=== PATIENT | male | born 1945 | race Caucasian/White ===

== ENCOUNTER 2017-04-11 13:01 | Emergency (ER) | payer OTHER ==
[2017-04-11 13:23] VITALS: BMI 29.0
[2017-04-11 13:28] LABS: BASOPHILS % (AUTO) 0.7 % (0.2-1.0); EOSINOPHILS # (AUTO) 0.1 x10^3/uL (0.0-0.2); HEMOGLOBIN 15.2 g/dL (13.5-18.0); LYMPHOCYTES # (AUTO) 2.2 X10^3/uL (1.3-2.9); LYMPHOCYTES % (AUTO) 37.5 % (21.0-51.0); MEAN CORPUSCULAR HEMOGLOBIN 30.7 pg (27.0-34.0); MEAN CORPUSCULAR HGB CONC 34.6 g/dL (33.0-35.0); MEAN CORPUSCULAR VOLUME 88.6 fL (80.0-100.0); MONOCYTES # (AUTO) 0.8 x10^3/uL (0.3-0.8); MONOCYTES % (AUTO) 14.4 % (0.0-13.0); NEUTROPHILS # (AUTO) 2.7 x10^3/uL (2.2-4.8); NEUTROPHILS % (AUTO) 45.4 % (42.0-75.0); PLATELET COUNT 142 X10^3/uL (150.0-450.0); RED BLOOD COUNT 4.96 X10^6/uL (4.7-6.0); RED CELL DISTRIBUTION WIDTH 14.8 % (11.6-16.5); WHITE BLOOD COUNT 5.8 X10^3/uL (3.6-10.0)
[2017-04-11 13:41] LABS: BLOOD UREA NITROGEN 12 mg/dL (7-18); CALCIUM 8.6 mg/dL (8.5-10.1); CHLORIDE 108 mmol/L (98-107); CREATININE 1.07 mg/dL (0.70-1.30); SODIUM 142 mmol/L (136-145); TROPONIN I < 0.02 ng/mL (0-1.5); eGFR BLACK RACES > 60 (>60); eGFR NON BLACK RACES > 60 (>60)
[2017-04-11 13:45] LABS: ALANINE AMINOTRANSFERASE 22 Units/L (12-78); ALBUMIN 3.3 g/dL (3.4-5.0); ALKALINE PHOSPHATASE 109 Units/L (46-116); ASPARTATE AMINO TRANSFERASE 20 Units/L (15-37); CKMB % 1.1 % (<4); COR CA(FOR HYPOALB) 9.2 mg/dL (8.5-10.1); CREATINE KINASE 92 Units/L (39-308); CREATINE KINASE MB < 1.0 ng/mL (0-4.0); MAGNESIUM 1.8 mg/dL (1.7-2.9); TOTAL PROTEIN 7.1 g/dL (6.4-8.2)
[2017-04-11 14:09] LABS: BILIRUBIN,URINE NEGATIVE (NEGATIVE); BLOOD/HEMOGLOBIN,URINE NEGATIVE (NEGATIVE); GLUCOSE, URINE NEGATIVE (NEGATIVE); KETONES,URINE NEGATIVE (NEGATIVE); LEUKOCYTE ESTERASE ,URINE NEGATIVE (NEGATIVE); NITRITES,URINE NEGATIVE (NEGATIVE); PH,URINE 6.5 (5.0 - 8.0); PROTEIN,URINE NEGATIVE (NEGATIVE); UROBILINOGEN,URINE NORMAL (NORMAL)
[2017-04-11 14:25] LABS: APPEARANCE,URINE CLEAR (CLEAR); BACTERIA,URINE NEGATIVE /HPF (NEGATIVE); COLOR,URINE YELLOW (YELLOW); RBC,URINE 0 /HPF (NEGATIVE); SQUAMOUS EPITHELIAL CELL,UR NEGATIVE /HPF (NEGATIVE)
--- NOTE | 2017-04-11 14:46 | DR.GENAD ---
HPI - PCP Primary Care Physician: Eulogio - HPI Comment HPI Comment: PATIENT FEE LIGHT HEADED AND WEAK. NOT RESOLVING. BETSY ELEVATED IN ED. - Complaint/Symptoms Chief Complaint Doctors Comments: DIZZINESS, CHEST PAIN ANF HEART FLUTTERING FOR FEW HOURS. Chief Complaint:: "Today my heart has just been feeling like it is fluttering. I have had A-fib in the past and I'm thinking that might be what it is. When I stood up earlier I was really dizzy as well." - Nurses notes reviewed Nurses Notes Review: Yes - Source History Provided: Patient - Mode of Arrival Mode of Arrival: Ambulatory - Timing Onset of Chief Complaint: 04/11/17 Came on: Suddenly - Duration Duration: Constant Duration: Days - Severity Severity: Moderate PMH - PMH Past Medical History: Yes Past Medical History: Hypertension Past Medical History Comment: Afib Past Surgical History: Yes Surgical History: Ortho Surgery, Other Past Surgical History Comment: Ankle pin - Family History History of Family Medical Conditions: Yes Family Medical History: Diabetes Mellitus, Cancer, [place], Sudden Cardiac , Hypertension - Social History Does patient currently use any type of tobacco product: No Have you used tobacco products in the last 12 months: No Type of Tobacco Use: None Does any household member use tobacco: No Alcohol Use: None Do you use any recreational Drugs:: No Lives With: Family Lives Where: Home - infectious screening In the last 2 months have you had wt loss of >10#?: NO Have you had fever, night sweats or hemotysis?: No Have you traveled outside the country in the last 6 months?: No Isolation: Standard ROS - Review of Systems Constitutional: Weakness, Fatigue Eyes: No Symptoms Reported ENTM: Nose Congestion, Throat Pain. negative: Ear Pain, Nose Discharge Respiratoy: Non-Productive Cough Cardiovascular: Chest Pain Gastrointestinal/Abdominal: Nausea Genitourinary: No Symptoms Reported Neurological: Headache, Weakness, Dizziness Musculoskeletal: No Symptoms Reported Integumentary: No Symptoms Reported Hematologic/Lymphatic: No Symptoms Reported Endocrine: No Symptoms Reported Psychiatric: No Symptoms Reported All Other Systems: Reviewed and Negative PE - Vital Signs Vitals: Pulse Rate [Left Brachial] 69 Pulse Rate 67 Respiratory Rate 16 Blood Pressure [Right Arm] 112/84 Blood Pressure [Left Arm] 177/84 Blood Pressure 190/98 O2 Sat by Pulse Oximetry 99 - General Limitations: No Limitations General Appearance: Alert - Head Head Exam: Normal Inspection - Eyes Eye exam: Normal Appearance - ENT ENT Exam: Normal External Ear Exam External Ear Exam: Normal External Inspection TM/Canal Exam: Bilateral Normal Nose Exam: Normal Nose Exam Mouth Exam: Normal Inspection Throat Exam: Normal Inspection - Neck Neck Exam: Trachea Midline - Chest Chest Inspection: Symmetric Chest Wall Rise - Respiratory Respiratory Exam: Normal Lung Sounds Bilat Respiratory Exam: Bilateral Clear to Auscultation - Cardiovascular Cardiovascular Exam: Regular Rate, Normal Rhythm, Normal Heart Sounds - Abdominal Exam Abdominal Exam: Normal Bowel Sounds, Soft. negative: Tenderness - Extremities Extremities Exam: Normal Inspection - Back Back Exam: Normal Inspection - Neurologic Neurological Exam: Alert, Oriented X3 - Psychiatric Psychiatric Exam: Normal Affect, Normal Mood - Skin Skin Exam: Normal Color MDM - Additional Information Additional Information Obtained From: Family - Differential Diagnosis Differential Diagnosis: DIZZINESS, CVA, CHEST PAIN, SINUSITIS, LABYRINTHITIS, HTN Course - Treatment Treatment: SEE ORDERS - Education/Counseling Education/Counseling: Patient, Family, Education Educated On: Treatment, Diagnosis, Needs for Follow Up ROR - Labs Reviewed Laboratory Results Reviewed?: Yes Result Diagrams: 04/11/17 13:15 04/11/17 13:15 Laboratory: WBC 5.8 X10^3/uL (3.6-10.0) 04/11/17 13:15 RBC 4.96 X10^6/uL (4.7-6.0) 04/11/17 13:15 Hgb 15.2 g/dL (13.5-18.0) 04/11/17 13:15 Hct 44.0 % (42.0-54.0) 04/11/17 13:15 MCV 88.6 fL (80.0-100.0) 04/11/17 13:15 MCH 30.7 pg (27.0-34.0) 04/11/17 13:15 MCHC 34.6 g/dL (33.0-35.0) 04/11/17 13:15 RDW 14.8 % (11.6-16.5) 04/11/17 13:15 Plt Count 142 X10^3/uL (150.0-450.0) L 04/11/17 13:15 MPV 8.0 fL (7.4-11.0) 04/11/17 13:15 Neut % 45.4 % (42.0-75.0) 04/11/17 13:15 Lymph % 37.5 % (21.0-51.0) 04/11/17 13:15 [place] % 14.4 % (0.0-13.0) H 04/11/17 13:15 Eos % 2.0 % (0.9-2.9) 04/11/17 13:15 Baso % 0.7 % (0.2-1.0) 04/11/17 13:15 Neut # 2.7 x10^3/uL (2.2-4.8) 04/11/17 13:15 Lymph # 2.2 X10^3/uL (1.3-2.9) 04/11/17 13:15 [place] # 0.8 x10^3/uL (0.3-0.8) 04/11/17 13:15 Eos # 0.1 x10^3/uL (0.0-0.2) 04/11/17 13:15 Baso # 0.0 X10^3/uL (0.0-0.1) 04/11/17 13:15 Absolute Nucleated RBC 0.1 /100WBC 04/11/17 13:15 INR Target Range - 04/11/17 13:15 INR 1.15 (0.8-1.3) 04/11/17 13:15 PTT 26.5 SECONDS (22.9-36.5) 04/11/17 13:15 PTT Comment - 04/11/17 13:15 Sodium 142 mmol/L (136-145) 04/11/17 13:15 Corrected Sodium TNP 04/11/17 13:15 Potassium 4.0 mmol/L (3.5-5.1) 04/11/17 13:15 Chloride 108 mmol/L (98-107) H 04/11/17 13:15 Carbon Dioxide 23.0 mmol/L (21-32) 04/11/17 13:15 BUN 12 mg/dL (7-18) 04/11/17 13:15 Creatinine 1.07 mg/dL (0.70-1.30) 04/11/17 13:15 Est GFR (MDRD) Af Amer > 60 (>60) 04/11/17 13:15 Est GFR (MDRD) Non-Af > 60 (>60) 04/11/17 13:15 Glucose 101 mg/dL (65-99) H 04/11/17 13:15 Calcium 8.6 mg/dL (8.5-10.1) 04/11/17 13:15 Corrected Calcium 9.2 mg/dL (8.5-10.1) 04/11/17 13:15 Magnesium 1.8 mg/dL (1.7-2.9) 04/11/17 13:15 Total Bilirubin 0.40 mg/dL (0.2-1.0) 04/11/17 13:15 AST 20 Units/L (15-37) 04/11/17 13:15 ALT 22 Units/L (12-78) 04/11/17 13:15 Alkaline Phosphatase 109 Units/L (46-116) 04/11/17 13:15 Creatine Kinase 92 Units/L (39-308) 04/11/17 13:15 CK-MB (CK-2) < 1.0 ng/mL (0-4.0) 04/11/17 13:15 CK/CKMB % Calc 1.1 % (<4) 04/11/17 13:15 Troponin I < 0.02 ng/mL (0-1.5) 04/11/17 13:15 Total Protein 7.1 g/dL (6.4-8.2) 04/11/17 13:15 Albumin 3.3 g/dL (3.4-5.0) L 04/11/17 13:15 Globulin 3.8 g/dL (2.5-4.5) 04/11/17 13:15 Albumin/Globulin Ratio 0.9 Ratio (1.1-2.1) L 04/11/17 13:15 Specimen Type Clean catch urine 04/11/17 13:58 Urine Color Yellow (YELLOW) 04/11/17 13:58 Urine Appearance Clear (CLEAR) 04/11/17 13:58 Urine pH 6.5 (5.0 - 8.0) 04/11/17 13:58 Ur Specific [place] 1.005 (1.000-1.030) 04/11/17 13:58 Urine Protein Negative (NEGATIVE) 04/11/17 13:58 Urine Glucose (UA) Negative (NEGATIVE) 04/11/17 13:58 Urine Ketones Negative (NEGATIVE) 04/11/17 13:58 Urine Occult Blood Negative (NEGATIVE) 04/11/17 13:58 Urine Nitrite Negative (NEGATIVE) 04/11/17 13:58 Urine Bilirubin Negative (NEGATIVE) 04/11/17 13:58 Urine Urobilinogen Normal (NORMAL) 04/11/17 13:58 Ur Leukocyte Esterase Negative (NEGATIVE) 04/11/17 13:58 Urine RBC 0 /HPF (NEGATIVE) 04/11/17 13:58 Urine WBC 0 /HPF (NEGATIVE) 04/11/17 13:58 Ur Squamous Epith Cells Negative /HPF (NEGATIVE) 04/11/17 13:58 Urine Bacteria Negative /HPF (NEGATIVE) 04/11/17 13:58 Ur Culture Indicated? No/not indicated 04/11/17 13:58 - XRAY XRAY Interpreted by: Radiologist XRAY Findings: REPORT DISCUSS WITH PATIENT. - EKG Rhythm: NSR (EKG NOTED.) - Diagnosis Discharge Problem: Dizziness, Sinus headache Sinusitis Qualifiers: Sinusitis location: pansinusitis Chronicity: acute Recurrence: not specified as recurrent Qualified Code(s): J01.40 - Acute pansinusitis, unspecified HTN (hypertension) Qualifiers: Hypertension type: essential hypertension Qualified Code(s): I10 - Essential ( primary) hypertension - Discharge Plan Disposition: 01 HOME, SELF-CARE Condition: Stable Prescriptions: Amoxicillin/Potassium Clav [Augmentin Xr 1,000-62.5 Tab] 1 tab PO Q12H #20 tab.sr Cetirizine HCl [Zyrtec Tab 10 mg] 10 mg PO DAILY #30 tab - Follow ups/Referrals Follow ups/Referrals: INGRIS KNOTT [Primary Care Provider] - 04/12/17 - Instructions Instructions: Sinusitis, Adult, [id number], Sinus Headache, [id number], Dizziness, [id number] Additional Instructions: RETURN TO ED IF WORSE.
[2017-04-11] MEDS ORDERED: CATAPRES TAB 0.1 MG PO ONE ×2 (15:17→16:30)
[2017-04-11] MEDS ORDERED: CATAPRES TAB 0.1 MG ONE ×2 (15:22→16:32)
--- NOTE | 2017-04-11 15:48 | CT ---
HISTORY: Dizziness, elevated blood pressure Study: CT brain without contrast Comparison: 02/19/2015 Technique: Multiple axial images of the brain were obtained from the skull base to the vertex without administra tion of IV contrast. Coronal and sagittal images are also reviewed. Dose reduction techniques utilize d automatic exposure control. Findings: No acute intraparenchymal hemorrhage or mass can be identified. No extra-axial fluid collections are seen. No alteration in the attenuation of the brain parenchyma can be identified to suggest acute o r subacute ischemic change. The ventricular system is symmetric and nondilated. There is chronic pe riventricular white matter disease observed and age-appropriate generalized atrophy. Air-fluid levels are present within the frontal and maxillary sinuses bilaterally. Findings have the appearance of ac ritesh sinusitis. Mucosal thickening is present involving the ethmoid sinuses bilaterally, primarily ant eriorly. Sphenoid sinuses appear well aerated and clear. IMPRESSION: 1. No acute intracranial process can be identified. 2. 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 3. Age-appropriate atrophic changes are seen. 4. Bilateral sinusitis, acute and chronic. Reported By:
[2017-04-11 16:05] VITALS: BP 177/84
[2017-04-11] MEDS ORDERED: ROCEPHIN VIAL 1 GM 1 GM in NS 50 ML IV + SPIKE MINIBAG* 50 ML IV ONE (16:16)
--- NOTE | 2017-04-11 16:17 | RAD ---
HISTORY: Chest pain and elevated blood pressure Study: Single view of the chest. Comparison: None. Findings: The cardiomediastinal silhouette is normal. No focal consolidations, pleural effusions or pneumothora x. Osseous structures demonstrate no acute abnormality. IMPRESSION: 1. No acute cardiopulmonary process. Reported By:
[2017-04-11] MEDS ORDERED: NS 50 ML IV + SPIKE MINIBAG* 50 ML IV ONE (16:33)
[2017-04-11] MEDS ORDERED: ROCEPHIN VIAL 1 GM ONE (16:33)
== END 2017-04-11 17:04 | disposition home or self-care (01) ==
LOC: ER 13:04
DX: J01.40 Acute pansinusitis, unspecified (principal); R51 Headache; R42 Dizziness and giddiness; I10 Essential (primary) hypertension
CPT/HCPCS: 36415; 70450; 71010; 80053; 81001; 82550; 82553; 83735; 84484; 85025; 85610; 85730; 93005; 93010; 96365; 96367; 96374; 96375; 99283; 99284; A4222; J0696

== ENCOUNTER 2017-07-13 23:55 | Emergency (ER) | payer OTHER ==
[2017-07-14 00:06] VITALS: BP 159/73; BMI 29.8
--- NOTE | 2017-07-14 00:28 | DR.GENAD ---
HPI - PCP Primary Care Physician: INGRIS KNOTT - Complaint/Symptoms Chief Complaint Doctors Comments: Patient states he has been having a cough, fever, chills, nasal congestion with his head stopped up for the pat 2-3 days getting worst tonight. State he was on his bi-pap machine but his states he was breathing heavy and loud and she was worried about him being contested. States he has been taking his medicines and Zyrtec for sinus but it has not been helping. He denies chest pain, tobacco or alcohol use. States he has not been around anyone with the flu. Chief Complaint:: " COUGHING, FEVER, HEAD STOPPED UP." Self Treatment fo Chief Complaint: ZYRTEC - Nurses notes reviewed Nurses Notes Review: Yes - Source History Provided: Patient - Mode of Arrival Mode of Arrival: Ambulatory - Timing Onset of Chief Complaint: 07/13/17 Came on: Gradually - Duration Duration: Constant How lon Duration: Days - Location Location: cough, congestion, nasal congestion - Severity Severity: Moderate - Modifying Factors Worsens:: breathing through nose Improves:: nothing PMH - PMH Past Medical History: Yes Past Medical History: Hypertension Past Surgical History: Yes Surgical History: Ortho Surgery, Other Past Surgical History Comment: HERNIA REPAIR - Family History History of Family Medical Conditions: Yes Family Medical History: Diabetes Mellitus, Cancer, [place], Sudden Cardiac , Hypertension - Social History Alcohol Use: None Do you use any recreational Drugs:: No Lives Where: Home - infectious screening Have you traveled outside the country in the last 6 months?: No ROS - Review of Systems Constitutional: No Symptoms Reported, Chills, Fever Eyes: No Symptoms Reported. negative: See HPI, Eye Pain, Blurred Vision, Tearing, Discharge, Photophobia, Diplopia, Other ENTM: No Symptoms Reported, Nose Discharge, Nose Congestion Respiratoy: No Symptoms Reported, Non-Productive Cough Cardiovascular: No Symptoms Reported. negative: See HPI, Chest Pain, Edema, Palpitations, Syncope, Cyanosis, Skin Mottling, Other Gastrointestinal/Abdominal: No Symptoms Reported. negative: See HPI, Abdominal Pain, Constipation, Diarrhea, Nausea, Vomiting, Food Intolerance, Other Genitourinary: No Symptoms Reported. negative: See HPI, Discharge, Dysuria, Frequency, Hematuria, Pain, Bleeding, Other Neurological: No Symptoms Reported. negative: See HPI, Anxiety, Depressed, Emotional Problems, Headache, Numbness, Paresthesia, Pre-existing Deficit, Seizure, Tingling, Tremors, Weakness, Dizziness, Problems Walking, Speech Problem, Other Musculoskeletal: No Symptoms Reported Integumentary: No Symptoms Reported Hematologic/Lymphatic: No Symptoms Reported Endocrine: No Symptoms Reported Psychiatric: No Symptoms Reported. negative: See HPI, Anxiety, Depression, Hallucinations, Excessive crying, Suicidal, Other PE - Vital Signs Vitals: Temperature 100.7 F Pulse Rate 87 Respiratory Rate 18 Blood Pressure [Right Arm] 112/84 Blood Pressure [Left Arm] 177/84 Blood Pressure 159/73 O2 Sat by Pulse Oximetry 98 - General Limitations: No Limitations General Appearance: Alert, In No Apparent Distress - Head Head Exam: Normal Inspection, Atraumatic, Normocephalic - Eyes Eye exam: Normal Appearance, PERRL, EOMI. negative: Scleral Icterus, Conjunctival Injection, Nystagmus, Miosis, Mydrasis, Periorbital Swelling, Periorbital Tenderness, Other - ENT ENT Exam: Normal Exam, Normal Oropharynx, Normal External Ear Exam, Mucous Membranes Moist, TM's Normal Bilaterally External Ear Exam: Normal External Inspection TM/Canal Exam: Bilateral Normal Nose Exam: Normal Nose Exam, Sinus Tenderness (maxillary). negative: Nasal Deviation (nasal congestion with purulent secretion) Mouth Exam: Normal Inspection. negative: Drooling, Trismus, Lip Swelling, Tongue Elevation, Tongue Swelling, Laceration, Other Throat Exam: Normal Inspection. negative: Tonsillar Erythema, Tonsillomegaly, Tonsillar Exudate, R Peritonsillar Mass, L Peritonsillar Mass, Muffled Voice, Other - Neck Neck Exam: Normal Inspection, Full ROM, Trachea Midline - Chest Chest Inspection: Normal Inspection, Symmetric Chest Wall Rise - Respiratory Respiratory Exam: Normal Lung Sounds Bilat Respiratory Exam: Bilateral Clear to Auscultation - Cardiovascular Cardiovascular Exam: Regular Rate, Normal Rhythm, Normal Heart Sounds - Abdominal Exam Abdominal Exam: Normal Inspection, Normal Bowel Sounds, Soft Abdominal Tenderness: negative: RUQ, RLQ, LUQ, LLQ, Epigastrium, Suprapubic, Diffuse, Mild, Moderate, Severe, Other - Extremities Extremities Exam: Normal Inspection, Full ROM, Normal Capillary Refill. negative: Tenderness, Edema, Joint Swelling, Calf Tenderness, Other - Back Back Exam: Normal Inspection, Full ROM. negative: Tenderness, (R) CVA Tenderness, (L) CVA Tenderness, Muscle Spasm, Paraspinal Tenderness, Vertebral Tenderness, Rashes, (R) Sciatic Notch Tenderness, (L) Sciatic Notch Tendern, (R ) Straight Leg Raise, (L) Straight Leg Raise, Other - Neurologic Neurological Exam: Alert, Oriented X3, CN II-XII Intact, Normal Gait, Reflexes Normal - Psychiatric Psychiatric Exam: Normal Affect, Normal Mood. negative: Depressed, Agitated, Anxious, Flat Affect, Manic, Homicidal Ideation, Suicidal Ideation, Other - Skin Skin Exam: Warm, Dry, Intact, Normal Color. negative: Rash, Cyanosis, Diaphoresis, Erythema, Pallor, Mottled, Other ROR - Labs Reviewed Laboratory Results Reviewed?: Yes (all lab results reviewed and discussed with patient and spouse) Laboratory: Influenza Type A (PCR) Positive (NEGATIVE) A 07/14/17 01:04 Influenza Type B (PCR) Negative (NEGATIVE) 07/14/17 01:04 - Diagnosis Discharge Problem: Influenza A (H1N1), Bronchitis Sinusitis, acute Qualifiers: Sinusitis location: maxillary - Discharge Plan Disposition: HOME, SELF-CARE Condition: Stable Prescriptions: Cephalexin [KEFLEX CAP 500 MG *] 500 mg PO TID #30 cap Ibuprofen [MOTRIN TAB 800 MG *] 800 mg PO Q8H PRN #45 tab PRN Reason: Pain/Inflammation Oseltamivir Phosphate [Tamiflu] 75 mg PO BID #10 cap - Follow ups/Referrals Follow ups/Referrals: INGRIS KNOTT [Primary Care Provider] - 3 days - Instructions Instructions: Influenza, Adult, [id number], Sinusitis, Adult, [id number], Acute Bronchitis
[2017-07-14] MEDS ORDERED: ROCEPHIN VIAL 1 GM IM ONE (00:58)
[2017-07-14] MEDS ORDERED: BENADRYL CAP 50 MG PO ONE (00:59)
[2017-07-14] MEDS ORDERED: TORADOL 60 MG VIAL IM ONE (00:59)
[2017-07-14] MEDS ORDERED: ROCEPHIN VIAL 1 GM ONE (01:23)
[2017-07-14] MEDS ORDERED: TORADOL 60 MG VIAL ONE (01:23)
[2017-07-14] MEDS ORDERED: BENADRYL CAP/TAB 25 MG PO ONE (01:24)
[2017-07-14] MEDS ORDERED: TAMIFLU PO ONE (02:06)
[2017-07-14] MEDS ORDERED: TAMIFLU PO SCH (03:00)
== END 2017-07-14 02:13 | disposition home or self-care (01) ==
LOC: ER 23:55
DX: J11.1 Influenza due to unidentified influenza virus with other respiratory manifestations (principal); J40 Bronchitis, not specified as acute or chronic; J01.80 Other acute sinusitis
CPT/HCPCS: 87502; 96372; 99282; 99283; G9035; J0696; J1885